=== PATIENT | female | born 1955 | race Caucasian/White ===

== ENCOUNTER → 2025-06-15 14:17 | Outpatient (REF) | payer MEDICARE, SELFPAY | LOC: HWRAD 14:17 | PROVIDERS: ATTENDING PHYSICIAN Family Medicine | DX: Z78.0 Asymptomatic menopausal state (principal); Z13.820 Encounter for screening for osteoporosis | CPT/HCPCS: 77080 ==

== ENCOUNTER → 2025-08-27 12:43 | Outpatient (REF) | payer MEDICARE, SELFPAY | LOC: HWRAD 12:43 | PROVIDERS: ATTENDING PHYSICIAN Family Medicine | DX: R10.A1 Flank pain, right side (principal) | CPT/HCPCS: 72072; 76775 ==